=== PATIENT | female | born 1950 | race Caucasian/White ===

== ENCOUNTER 2016-06-18 14:53 | Emergency (ER) | payer MEDICARE, OTHER ==
[2016-06-18] MEDS ORDERED: SODIUM CHLORIDE 0.9% 1000ML 1,000 ML IVS ONE (15:08)
[2016-06-18] MEDS ORDERED: LIDOCAINE VIS-MYLANTA 30 ML UD PO ONE (15:08)
[2016-06-18] MEDS ORDERED: ONDANSETRON ODT 8 MG TAB SL SCH (15:30)
--- NOTE | 2016-06-18 15:55 | RAD ---
EXAM DESCRIPTION: Abdomen Series CLINICAL HISTORY: 65 years Female, epigastric and ruq pain IMPRESSION: Calcified granuloma seen within the left upper lobe. This has remained stable when compared to April 2007. The sinus is unremarkable. 2 views of the abdomen reveal nonspecific small bowel gas pattern. No free air noted. Probable hepatomegaly. Left lower pole 5 mm renal stone. Electronically signed by: Fran Delvalle MD 06/18/2016 3:54 PM CDT
[2016-06-18] MEDS ORDERED: PANTOPRAZOLE SODIUM IV 40 MG VIAL IV ONE (15:57)
[2016-06-18] MEDS ORDERED: SUCRALFATE 1 GM/10 ML 1 GM UD PO ONE (15:57)
[2016-06-18] MEDS ORDERED: FAMOTIDINE 20 MG TAB PO ONE (15:58)
[2016-06-18] MEDS ORDERED: PROMETHAZINE HCL 25 MG TAB PO ONE (16:03)
[2016-06-18] MEDS ORDERED: ALUMINUM & MAGNESIUM HYDROXIDE 30 ML UD PO ONE (16:03)
[2016-06-18] MEDS ORDERED: MORPHINE SULFATE INJ 10 MG/ML VIAL IV ONE ×2 (17:06→22:09)
--- NOTE | 2016-06-18 20:06 | CT ---
PROCEDURE: Abdomen/Pelvis w/Contrast HISTORY: epigastric/ruq pain, needs oral contrast too Indication: Same as above Comparison: None . Technique: CT of the abdomen and pelvis was done with intravenous contrast. Images were obtained from the lung base to the level of the pubic symphysis in axial plane, followed by orthogonal sagittal and coronal reconstruction. Oral contrast was not given for the study. The patient was injected with contrast intravenously, without any documented immediate adverse reactions. This exam was performed according to our departmental dose-optimization program, which includes automated exposure control, adjustment of the mA and/or KV according to the patient's size and/or use of iterative reconstruction technique. FINDINGS: Images through the lung bases show small right-sided pleural effusion. There is small amount of ascites fluid The gallbladder is moderately distended with presence of small amount of intraluminal sludge/tiny gallstones and mild pericholecystic fluid, suspicious for underlying changes of acute cholecystitis. There is splenomegaly with the spleen measuring 17 cm in length. The liver shows slightly nodular contour, suspicious for underlying changes of mild cirrhosis. There are mild perisplenic varices. There is mild circumferential thickening of the wall of the urinary bladder which may be due to underlying mild cystitis. The pancreas and the bilateral adrenal glands appear unremarkable. The bilateral kidneys enhance with contrast in a normal fashion. The bilateral ureters and the bilateral periureteral soft tissues and fat planes are unremarkable. The small bowel appears unremarkable, without any evidence of small bowel obstruction or bowel wall thickening. There is no CT evidence of acute appendicitis, pericecal inflammatory change or ileocecal mesenteric adenitis. The ileocecal junction appears unremarkable. There is no CT evidence of acute colonic diverticulitis or colitis or large bowel obstruction. The splenic and portal veins are of normal caliber, without any filling defects. There is no pathological lymphadenopathy in the retroperitoneum or in the pelvic region. There is no evidence of free air in the abdomen or the pelvic region. There is no clinically significant abdominal aortic aneurysm. There is no clinically significant inguinal or ventral hernia. The visualized lumbar spine shows underlying mild degenerative change . The paravertebral soft tissues are unremarkable. The remainder of the pelvic structures are unremarkable. IMPRESSION: Images through the lung bases show small right-sided pleural effusion. There is small amount of ascites fluid The gallbladder is moderately distended with presence of small amount of intraluminal sludge/tiny gallstones and mild pericholecystic fluid, suspicious for underlying changes of acute cholecystitis. There is splenomegaly with the spleen measuring 17 cm in length. The liver shows slightly nodular contour, suspicious for underlying changes of mild cirrhosis. There are mild perisplenic varices. There is mild circumferential thickening of the wall of the urinary bladder which may be due to underlying mild cystitis.. Location of Interpretation: [facility] Electronically signed by: Hunter Edwards MD 06/18/2016 8:07 PM CDT
[2016-06-18] MEDS ORDERED: PIPERACILLIN/TAZOBACTAM 3.375 GM in SODIUM CHLORIDE 0.9% 100ML 100 ML IVPB ONE (20:41)
[2016-06-18] MEDS ORDERED: SODIUM CHLORIDE 0.9% 100ML 100 ML IVPB ONE (20:47)
[2016-06-18] MEDS ORDERED: PIPERACILLIN/TAZOBACTAM 3.375 GM VIAL IVPB ONE (20:47)
--- NOTE | 2016-06-18 21:18 | ED.PDOC ---
History of Present Illness - General Chief Complaint: Abdominal Pain Stated Complaint: epigastric pain,RUQ pain,bloating Time Seen by Provider: 06/18/16 15:00 Source: patient Exam Limitations: no limitations - History of Present Illness Initial Comments: the patient is a 65-year-old female presenting to the emergency room secondary to upper abdominal pain in epigastric and right upper quadrant with associated nausea and vomiting for the last 24-48 hours. No definite fevers. A couple of episodes of diarrhea. No blood. No syncopal or near syncope. No chest pain. She is very uncomfortable to palpation in the epigastric area and the right upper quadrant area. The patient has a questionable history of congestive heart failure and she does have some abnormalities on her EKG currently including a right bundle branch block. The patient also has a history of Amaya with some cirrhosis as well as a chronic mild leukopenia with an average white blood cell count around 4000 and chronic thrombocytopenia. She is a type II diabetic as well requiring large doses of insulin. Timing/Duration: 24 hours Severity: moderate Improving Factors: nothing Worsening Factors: eating, movement Associated Symptoms: loss of appetite, malaise, nausea/vomiting Allergies/Adverse Reactions: Allergies Cephalexin [From Keflex] Allergy (Verified 10/28/13 12:29) Ciprofloxacin [From Cipro] Allergy (Verified 10/28/13 12:29) Naproxen [From Naprosyn] Allergy (Verified 10/28/13 12:29) Home Medications: Ambulatory Orders Insulin NPH Isophane & Reg (Hu [Novolin 70/30 (70-30) 100 Unit/ml] 45 units SC .AM AND NOON 10/28/13 Levothyroxine Sodium [Synthroid] 100 mcg PO DAILY #30 tab 10/29/13 Insulin Glargine [Lantus Solostar] 70 unit SC .AT 2200 06/18/16 Insulin NPH Isophane & Reg (Hu [Novolin 70/30 (70-30) 100 Unit/ml] 40 inj SC BEDTIME 06/18/16 Oxycodone TID 06/18/16 Review of Systems - Review of Systems Constitutional: States: malaise, weakness EENTM: States: no symptoms reported Respiratory: States: no symptoms reported Cardiology: States: no symptoms reported Gastrointestinal/Abdominal: States: abdominal pain, nausea, vomiting Genitourinary: States: no symptoms reported Musculoskeletal: States: no symptoms reported Skin: States: no symptoms reported Neurological: States: no symptoms reported Endocrine: States: excessive sweating, increased thirst All other Systems: No Change from Baseline Past Medical History (General) - Patient Medical History Hx Seizures: No Hx Stroke: No Hx Asthma: Yes Hx of COPD: Yes Hx Cardiac Disorders: Yes Hx Congestive Heart Failure: No Hx Pacemaker: No Hx Hypertension: Yes Hx Thyroid Disease: Yes Hx Diabetes: Yes Hx Cancer: Yes - Uterine Hx MRSA: Yes MRSA Source:: Wound Surgical History: Hysterectomy - Vaccination History Hx Influenza Vaccination: Yes Hx Pneumococcal Vaccination: Yes - Social History Hx Tobacco Use: Yes Hx Alcohol Use: No Hx Substance Use: No Hx Physical Abuse: No Hx Emotional Abuse: No Family Medical History - Family History Mother Family History: Unknown Living Status: Age at (years of age): 86 Cause of : CHF Hx Family Congestive Heart Failure: Yes Father Living Status: Cause of : mesothelioma Hx Family Diabetes: Yes Hx Family Cancer: Yes Physical Exam - Physical Exam General Appearance: Alert, Obvious distress - vomiting Eye Exam: bilateral normal Ears, Nose, Throat: hearing grossly normal, normal ENT inspection, normal pharynx Neck: non-tender, full range of motion, supple, normal inspection Respiratory: chest non-tender, lungs clear, normal breath sounds, no respiratory distress, no accessory muscle use Cardiovascular/Chest: normal peripheral pulses, regular rate, rhythm, no edema Peripheral Pulses: radial,right: 2+, radial,left: 2+, dorsalis pedis,right: 2+, dorsalis pedis,left: 2+, posterior tibialis,right: 2+, posterior tibialis,left: 2+ Gastrointestinal/Abdominal: other - significant epigastric and right upper quadrant discomfort palpation. There does appear to be some peritoneal signs in the right upper quadrant. The patient is obese. Scars are present from her previous hernia repair. Rectal Exam: deferred Back Exam: normal inspection, no CVA tenderness, no vertebral tenderness Extremity: normal range of motion, non-tender, normal inspection, no pedal edema , normal capillary refill Neurologic: electronic industrial controls mechanic II-XII nml as tested, alert, oriented x 3 Skin Exam: normal color, diaphoresis - with vomiting Comments: Vital Signs - 24 hr 06/18/16 06/18/16 06/18/16 15:04 16:11 16:12 Temperature 96.2 F L Pulse Rate [ 84 74 75 Left Brachial] Respiratory 20 Rate Blood Pressure 173/83 101/72 109/69 [Left Arm] O2 Sat by Pulse 95 Oximetry 06/18/16 18:00 Temperature Pulse Rate [ 76 Left Brachial] Respiratory 20 Rate Blood Pressure 168/82 [Left Arm] O2 Sat by Pulse 95 Oximetry Progress - Progress Progress: 06/18/16 21:21 the patient is a 65-year-old female presenting with abdominal pain, nausea and vomiting that appears to be due to acute cholecystitis. Liver function tests remain reassuring with only mild elevation in lipase. The patient has been started on Zosyn, largely based on medication allergies and blood cultures have been performed. Antibiotics have been given and the patient has received a liter of IV fluids. The patient is being transferred for further evaluation with ultrasound of the right upper quadrant. Additionally if she were to receive surgery it would be better that she be operated on in a place where cardiology present given her questionable cardiac history and EKG. Additionally she does have some significant thrombocytopenia related to her cirrhosis as well as some mild elevation of her PT and PTT times. Transferred for higher level of care. The patient is nothing by mouth. the patient will need repeat glucose checks upon arrival. - Results/Orders Results/Orders: Laboratory Tests 06/18/16 06/18/16 06/18/16 15:25 15:25 15:25 WBC 3.3 L RBC 4.71 Hgb 13.4 Hct 41.2 MCV 87.5 MCH 28.5 MCHC 32.6 L RDW 15.9 H Plt Count 69 L MPV 8.6 Absolute Neuts (auto) 2.30 Absolute Lymphs (auto) 0.70 L Absolute Monos (auto) 0.20 Absolute Eos (auto) 0.10 Absolute Basos (auto) 0.00 Neutrophils % 69.8 Lymphocytes % 19.8 L Monocytes % 6.9 Eosinophils % 2.2 Basophils % 1.3 PT 13.0 H INR 1.150 PTT (SP) 36.9 H D-Dimer, Quantitative 296 H* Sodium 139 Potassium 3.9 Chloride 105 Carbon Dioxide 28 Anion Gap 9.9 L BUN 15 Creatinine 0.77 BUN/Creatinine Ratio 19.5 Random Glucose 268 H Serum Osmolality 287.8 Calcium 9.3 Total Bilirubin 0.8 AST 41 ALT 25 Alkaline Phosphatase 108 Creatine Kinase 42 CK-MB (CK-2) 2.3 CK-MB (CK-2) % Not Reportable Troponin I < 0.02 Serum Total Protein 7.3 Albumin 3.4 Globulin 3.9 H Albumin/Globulin Ratio 0.9 L Amylase 76 Lipase 295 H Urine Color Urine Appearance Urine pH Ur Specific [place] Urine Protein Urine Glucose (UA) Urine Ketones Urine Blood Urine Nitrite Urine Bilirubin Urine Urobilinogen Ur Leukocyte Esterase Urine RBC Urine WBC Ur Epithelial Cells Urine Bacteria 06/18/16 16:43 WBC RBC Hgb Hct MCV MCH MCHC RDW Plt Count MPV Absolute Neuts (auto) Absolute Lymphs (auto) Absolute Monos (auto) Absolute Eos (auto) Absolute Basos (auto) Neutrophils % Lymphocytes % Monocytes % Eosinophils % Basophils % PT INR PTT (SP) D-Dimer, Quantitative Sodium Potassium Chloride Carbon Dioxide Anion Gap BUN Creatinine BUN/Creatinine Ratio Random Glucose Serum Osmolality Calcium Total Bilirubin AST ALT Alkaline Phosphatase Creatine Kinase CK-MB (CK-2) CK-MB (CK-2) % Troponin I Serum Total Protein Albumin Globulin Albumin/Globulin Ratio Amylase Lipase Urine Color Yellow Urine Appearance Clear Urine pH 7.0 Ur Specific [place] 1.025 Urine Protein 100 H Urine Glucose (UA) 100 H Urine Ketones Negative Urine Blood Negative Urine Nitrite Negative Urine Bilirubin Negative Urine Urobilinogen 1.0 Ur Leukocyte Esterase Negative Urine RBC 0-1 Urine WBC 0-1 Ur Epithelial Cells 0-1 Urine Bacteria 0 blood cultures obtained and performed. CT scan of abdomen and pelvis shows the hepatomegaly with some sclerotic changes and splenomegaly. Pancreas appears grossly normal. There is some pericholecystic fluid and an expanded gallbladder with sludge present. There is some mild bladder wall thickening. No obstruction. No perforation. Changes consistent with previous hernia repair present. EKG shows a normal sinus rhythm with a significant right bundle branch block. There is possibly a mild left anterior fascicular block. No definitive ST segment changes otherwise concerning for ischemia. She does have occasional PVCs. QT interval is mildly prolonged. Departure - Departure Clinical Impression: Acute cholecystitis Disposition: Transfer to Hospital Home Medications: Ambulatory Orders Insulin NPH Isophane & Reg (Hu [Novolin 70/30 (70-30) 100 Unit/ml] 45 units SC .AM AND NOON 10/28/13 Levothyroxine Sodium [Synthroid] 100 mcg PO DAILY #30 tab 10/29/13 Insulin Glargine [Lantus Solostar] 70 unit SC .AT 2200 06/18/16 Insulin NPH Isophane & Reg (Hu [Novolin 70/30 (70-30) 100 Unit/ml] 40 inj SC BEDTIME 06/18/16 Oxycodone TID 06/18/16 Transfer to Outside Facility - Transfer Information Accepting Provider:: dr burnette Accepting Facility: [facility] Reason for Transfer: specialized care not available
[2016-06-18] MEDS ORDERED: LEVOTHYROXINE SODIUM 0.075 MG TAB ONE (22:03)
[2016-06-18 22:28] VITALS: BP 129/68; TEMP 97.2; O2SAT 96
[2016-06-19] MEDS ORDERED: LEVOTHYROXINE SODIUM 0.1 MG, LEVOTHYROXINE SODIUM 0.025 MG PO ONE ×2 (21:08)
== END 2016-06-18 22:20 | disposition short-term general hospital (02) ==
LOC: ER 14:53
DX: K81.0 Acute cholecystitis (principal); I45.10 Unspecified right bundle-branch block; Z87.891 Personal history of nicotine dependence; I10 Essential (primary) hypertension; E07.9 Disorder of thyroid, unspecified; E11.9 Type 2 diabetes mellitus without complications; Z85.42 Personal history of malignant neoplasm of other parts of uterus; Z86.14 Personal history of Methicillin resistant Staphylococcus aureus infection; J44.9 Chronic obstructive pulmonary disease, unspecified; Z79.4 Long term (current) use of insulin; Z88.3 Allergy status to other anti-infective agents; Z88.8 Allergy status to other drugs, medicaments and biological substances; D69.6 Thrombocytopenia, unspecified
CPT/HCPCS: 36415; 74020; 74177; 80053; 81001; 82150; 82550; 82553; 82948; 83690; 84484; 85025; 85379; 85610; 85730; 87040; 93005; J2270; J2543; J7030; J7050; Q0169

== ENCOUNTER 2019-05-23 16:02 | Emergency (ER) | payer MEDICARE, OTHER ==
--- NOTE | 2019-05-23 16:48 | ED.PDOC ---
History of Present Illness - General Chief Complaint: Trauma Stated Complaint: fall, left hip pain Time Seen by Provider: 05/23/19 16:19 Source: patient Exam Limitations: no limitations - History of Present Illness Initial Comments: 68 yo F who presents for L hip pain s/p fall. Pt states she was trying to get her dog to move and shooed him away but accidentally hit her R big toe, she went to sit down to look at her toe, when she went to sit in her swivel chair it moved and she fell onto her L hip. Has been unable to walk since that time left alone really move her hip. She has an extensive medical hx including liver cancer, chronically with mild SOB and LE edema which is at baseline today. Denies f/c, cough, congestion, sore throat, CP, abd pain, n/v/d, weakness, numbness, head trauma, LOC, pain or injury elsewhere. Allergies/Adverse Reactions: Allergies Cephalexin [From Keflex] Allergy (Verified 10/28/13 12:29) Ciprofloxacin [From Cipro] Allergy (Verified 10/28/13 12:29) Naproxen [From Naprosyn] Allergy (Verified 10/28/13 12:29) Home Medications: Ambulatory Orders Levothyroxine Sodium [Synthroid] 100 mcg PO DAILY #30 tab 10/29/13 Insulin Glargine [Lantus Solostar] 65 unit SC BEDTIME 06/18/16 Furosemide [Lasix] 80 mg PO DAILY 05/23/19 Insulin Aspart [Novolog Flexpen] 40 unit SC AC 05/23/19 Oxycodone HCl 10 mg PO .3PM 05/23/19 Oxycodone HCl 10 mg PO BEDTIME 05/23/19 Propranolol HCl [Propranolol Hydrochloride] 20 mg PO DAILY 05/23/19 Spironolactone 50 mg PO DAILY 05/23/19 Review of Systems - Review of Systems Constitutional: Denies: chills, fever EENTM: States: no symptoms reported. Denies: throat pain Respiratory: States: short of breath - chronic, at baseline. Denies: cough Cardiology: States: edema - chronic to LE, baseline. Denies: chest pain, palpitations, syncope Gastrointestinal/Abdominal: Denies: abdominal pain, diarrhea, nausea, vomiting Genitourinary: Denies: dysuria, frequency Musculoskeletal: States: joint pain - L hip. Denies: back pain, joint swelling, neck pain Skin: Denies: lesions, rash Neurological: Denies: headache, numbness, weakness Past Medical History (General) - Patient Medical History Hx Seizures: No Hx Stroke: No Hx Asthma: Yes Hx of COPD: Yes Hx Cardiac Disorders: Yes Hx Congestive Heart Failure: No Hx Pacemaker: No Hx Hypertension: Yes Hx Thyroid Disease: Yes Hx Diabetes: Yes Hx Cancer: Yes - Uterine, liver cancer (GARCIA) Hx MRSA: Yes MRSA Source:: Wound Surgical History: Hysterectomy, other - Vaccination History Hx Influenza Vaccination: Yes Hx Pneumococcal Vaccination: Yes - Social History Hx Tobacco Use: Yes Hx Alcohol Use: No Hx Substance Use: No Hx Physical Abuse: No Hx Emotional Abuse: No Family Medical History - Family History Mother Family History: Unknown Living Status: Age at (years of age): 86 Cause of : CHF Hx Family Congestive Heart Failure: Yes Father Living Status: Cause of : mesothelioma Hx Family Diabetes: Yes Hx Family Cancer: Yes Physical Exam - Physical Exam General Appearance: Alert, Comfortable, No apparent distress, Other - Laying in bed, immobilization by EMS with material wrapped around upper legs to prevent movement. Obese Eye Exam: bilateral normal Ears, Nose, Throat: normal ENT inspection Neck: non-tender, full range of motion, supple Respiratory: chest non-tender, lungs clear, normal breath sounds, no respiratory distress, no accessory muscle use Cardiovascular/Chest: normal peripheral pulses, regular rate, rhythm, no gallop, no JVD, no murmur, other - trace edema, symmetric BLE Peripheral Pulses: radial,right: 2+, radial,left: 2+, dorsalis pedis,right: 2+, dorsalis pedis,left: 2+ Gastrointestinal/Abdominal: non tender, soft, no pulsatile mass, hepatomegaly, other - no distention, guarding, rebound Rectal Exam: normal exam, normal rectal tone, heme negative stool Extremity: normal capillary refill, pelvis stable, other - Decreased ROM, TTP to L hip. No overt deformity. Full ROM of all extremities and joints without deformity, tenderness, or swelling. 2+ pulses, cap refill <2sec, NVID. Neurologic: returns clerk II-XII nml as tested, no motor/sensory deficits, alert, normal mood/affect, oriented x 3 Skin Exam: normal color, warm/dry Progress - Progress Progress: 05/23/19 18:10 Discussed with pt all results, states she was told she was too high risk for any surgery. Hgb has been low for some time, recently needed transfusion, had endoscopy that showed "bleeding in my stomach." Further denies any blood in her stool, lightheadedness, syncope, CP, SOB, palpitations. 05/23/19 18:[address] Ruvalcaba, will have LACE INSPECTOR called to further discuss case to see if appropriate to manage here vs transfer. 05/23/19 18:28 LACE INSPECTOR believes pt would be better served at a more tertiary facility. Will t ransfer to [facility], per pt preference as previously discussed. 05/23/19 18:44 Updated pt on discussions, agrees with plan of care. 05/23/19 19:10 [facility] accepts pt without need for doc to doc. Magalis Saucedo MD Emergency Medicine Physician Billing Number [id number] - Results/Orders Results/Orders: Laboratory Results - last 24 hr 05/23/19 05/23/19 05/23/19 17:25 17:25 17:25 WBC 2.8 L RBC 3.88 L Hgb 8.5 L Hct 28.1 L MCV 72.4 L MCH 21.8 L MCHC 30.2 L RDW 18.6 H Plt Count 70 L MPV 9.0 Absolute Neuts (auto) Not Reportable Absolute Lymphs (auto) Not Reportable Absolute Monos (auto) Not Reportable Absolute Eos (auto) Not Reportable Neutrophils % Not Reportable Neutrophils % (Manual) 73.0 Lymphocytes % Not Reportable Lymphocytes % (Manual) 22.0 Monocytes % Not Reportable Monocytes % (Manual) 4.0 Eosinophils % Not Reportable Basophils % Not Reportable Eosinophils 1.0 Hypochromia 2+ Platelet Estimate Decreased Poikilocytosis 1+ Microcytosis 1+ PT 12.4 H INR 1.25 H PTT (SP) 26.5 Sodium 136 Potassium 4.3 Chloride 100 L Carbon Dioxide 30 Anion Gap 10.3 L BUN 20 H Creatinine 1.43 H BUN/Creatinine Ratio 14.0 Random Glucose 308 H Serum Osmolality 286.2 Calcium 8.4 Total Bilirubin 1.2 H AST 42 ALT 17 Alkaline Phosphatase 134 H Serum Total Protein 7.1 Albumin 2.9 L Globulin 4.2 H Albumin/Globulin Ratio 0.7 L Stool Occult Blood 05/23/19 18:36 WBC RBC Hgb Hct MCV MCH MCHC RDW Plt Count MPV Absolute Neuts (auto) Absolute Lymphs (auto) Absolute Monos (auto) Absolute Eos (auto) Neutrophils % Neutrophils % (Manual) Lymphocytes % Lymphocytes % (Manual) Monocytes % Monocytes % (Manual) Eosinophils % Basophils % Eosinophils Hypochromia Platelet Estimate Poikilocytosis Microcytosis PT INR PTT (SP) Sodium Potassium Chloride Carbon Dioxide Anion Gap BUN Creatinine BUN/Creatinine Ratio Random Glucose Serum Osmolality Calcium Total Bilirubin AST ALT Alkaline Phosphatase Serum Total Protein Albumin Globulin Albumin/Globulin Ratio Stool Occult Blood Negative L hip XR: EXAM DESCRIPTION: X-RAY Hip,Left 2 Views; 2 views CLINICAL HISTORY: 68 years Female, fall COMPARISON: None. FINDINGS: Comminuted minimally displaced fracture of the left femoral neck extending into the proximal femoral diaphysis. IMPRESSION: Comminuted minimally displaced fracture of the left femoral neck extending into the proximal femoral diaphysis. Electronically signed by: Claudio Mackenzie MD 05/23/2019 5:35 PM CDT Vital Signs - 24 hr 05/23/19 05/23/19 05/23/19 16:09 16:32 17:00 Temperature 99.0 F Pulse Rate [ 65 66 64 left brachial] Respiratory 20 16 16 Rate Blood Pressure 127/71 96/61 143/65 [left brachial] O2 Sat by Pulse 93 L 98 97 Oximetry 05/23/19 18:00 Temperature 97.5 F L Pulse Rate [ 65 left brachial] Respiratory 19 Rate Blood Pressure 153/90 [left brachial] O2 Sat by Pulse 97 Oximetry Departure - Departure Clinical Impression: Thrombocytopenia Fracture of femoral neck, left Qualifiers: Encounter type: initial encounter Fracture type: closed Qualified Code(s): S72.002A - Fracture of unspecified part of neck of left femur, initial encounter for closed fracture Anemia Qualifiers: Anemia type: unspecified type Qualified Code(s): D64.9 - Anemia, unspecified Time of Disposition: 19:10 Disposition: Transfer to Hospital Condition: Fair Referrals: Donte Howell MD [Primary Care Provider] - 1-2 Weeks Home Medications: Ambulatory Orders Levothyroxine Sodium [Synthroid] 100 mcg PO DAILY #30 tab 10/29/13 Insulin Glargine [Lantus Solostar] 65 unit SC BEDTIME 06/18/16 Furosemide [Lasix] 80 mg PO DAILY 05/23/19 Insulin Aspart [Novolog Flexpen] 40 unit SC AC 05/23/19 Oxycodone HCl 10 mg PO .3PM 05/23/19 Oxycodone HCl 10 mg PO BEDTIME 05/23/19 Propranolol HCl [Propranolol Hydrochloride] 20 mg PO DAILY 05/23/19 Spironolactone 50 mg PO DAILY 05/23/19
--- NOTE | 2019-05-23 17:36 | RAD ---
EXAM DESCRIPTION: X-RAY Hip,Left 2 Views; 2 views CLINICAL HISTORY: 68 years Female, fall COMPARISON: None. FINDINGS: Comminuted minimally displaced fracture of the left femoral neck extending into the proximal femoral diaphysis. IMPRESSION: Comminuted minimally displaced fracture of the left femoral neck extending into the proximal femoral diaphysis. Electronically signed by: Claudio Mackenzie MD 05/23/2019 5:35 PM CDT
[2019-05-23] MEDS ORDERED: MORPHINE SULFATE INJ 10 MG/ML VIAL IV ONE ×2 (17:49→19:38)
[2019-05-23 19:29] VITALS: BP 147/58; TEMP 99.3; O2SAT 95
== END 2019-05-23 19:55 | disposition short-term general hospital (02) ==
LOC: ER 16:02
DX: S72.002A Fracture of unspecified part of neck of left femur, initial encounter for closed fracture (principal); D69.6 Thrombocytopenia, unspecified; J44.9 Chronic obstructive pulmonary disease, unspecified; E11.9 Type 2 diabetes mellitus without complications; I10 Essential (primary) hypertension; Z87.891 Personal history of nicotine dependence; W08.XXXA Fall from other furniture, initial encounter; Y92.9 Unspecified place or not applicable
CPT/HCPCS: 73502; 80053; 81001; 82270; 85025; 85610; 85730; J2270